=== PATIENT | male | born 1995 | race Caucasian/White ===

== ENCOUNTER 2023-10-19 22:48 | Emergency (ER) | payer OTHER, SELFPAY ==
[2023-10-19 23:00] VITALS: BP 148/88; PULSE 98; RESP 16; TEMP 36.7; O2SAT 98; BMI 21.6
--- NOTE | 2023-10-19 23:27 | ED_ITS ---
HPI - Headache General Time Seen by Provider: 23:27 <Denice Weinstein MD - Last Filed: 10/21/23 10:10> Date Seen: 10/23/23 <Denice Weinstein MD - Last Filed: 10/21/23 10:10> Chief Complaint: Headache/Migraine <Denice Weinstein MD - Last Filed: 10/21/23 10:10> Stated Complaint: Headache <Denice Weinstein MD - Last Filed: 10/21/23 10:10> Time Seen by Provider: 10/19/23 23:09 <Denice Weinstein MD - Last Filed: 10/21/23 10:10> Source: patient and RN notes reviewed <Denice Weinstein MD - Last Filed: 10/21/23 10:10> Mode of arrival: ambulatory <Denice Weinstein MD - Last Filed: 10/21/23 10:10> Limitations: no limitations <Denice Weinstein MD - Last Filed: 10/21/23 10:10> History of Present Illness HPI Narrative: This 28-year-old male is ambulatory into the ED with his girlfriend with complaint of the worst headache of his life. He did get some oxycodone from his girlfriend that she had left over as he had nothing else at his place to take. He took 5 mg of oxycodone at 5:00 p.m. tonight and then another 5 mg at 9:00 p.m.. He admits that he is feeling somewhat woozy, feels that the oxycodone has helped. He feels it in both of his temples, behind his eyes. He admits about a month ago he had another severe headache that lasted about 3-4 days, did not get this bad however. He has had no travel, no definite ill contacts. His girlfriend does want him to be tested for COVID but he feels he has no other symptoms other than the headache. He has had no fevers or chills, no sore throat, no congestion, no visual changes. He has had no neurologic changes with any motor weakness or incoordination in his extremities. He was able to ambulate in. He was in a dark room but does not really necessarily endorse photophobia or phonophobia. When ask him if he gets headaches, he states he feels he gets headaches about the same as a normal person would. He does not carry history of migraines. He is not aware of a family history of migraine headaches or any aneurysm disease in the family. There is no trauma. He told me that earlier when the headache was at its worse, would rated a 9/10. In triage she told them was about a 6/10, he is laughing quite a bit during my history and tells me it is maybe about a 5 per 5.5/10 now. He does admit that he is feeling the effects of the oxycodone and does feel that it has helped the headache. Headache started earlier today this morning, he can not really pinpoint when or remember when. He does remember that the headache felt worse after he went on a walk earlier today. <Denice Weinstein MD - Last Filed: 10/21/23 10:10> MD elicited complaint: headache <Denice Weinstein MD - Last Filed: 10/21/23 10:10> Related Data Home Medications: Home Medications ?Medication ?Instructions ?Recorded ?Confirmed No Known Home Medications 10/19/23 10/19/23 <Denice Weinstein MD - Last Filed: 10/21/23 10:10> Allergies/Adverse Reactions: Allergies Allergy/AdvReac Type Severity Reaction Status Date / Time No Known Drug Allergies Allergy Verified 10/19/23 23:00 <Denice Weinstein MD - Last Filed: 10/21/23 10:10> Review of Systems Status of ROS: Reports: 6 or more systems reviewed and unremarkable except as noted in History and below <Denice Weinstein MD - Last Filed: 10/21/23 10:10> [facility] Social History: Social History Smoking Status: Never smoker How often do you have a drink containing alcohol: never AUDIT-C Alcohol total score: 0 Non-prescribed substance use: denies use <Denice Weinstein MD - Last Filed: 10/21/23 10:10> Exam Const: Vital Signs, click to edit/add: Vital Signs - 24 hr 10/19/23 23:00 10/19/23 23:49 Temperature 98.1 F Pulse Rate [Pulse Oximeter] 98 Respiratory Rate 16 Blood Pressure [Ri ght Upper Arm] 148/88 H Pulse Oximetry 98 100 Oxygen Delivery Me thod Room Air Patient is alert, interactive, no apparent distress, does have the lights off in exam room to. Pupils are equal round reactive, sclera clear, extraocular muscles intact. TMs without any hemotympanum, no evidence of any infection, canals normal. Symmetrical facial function, laughing quite a bit during my interaction with him. Oropharynx normal, no exudates or erythema, mucosa normal. Speech is normal. Neck is supple, no adenopathy, no meningeal signs. Lungs are clear, good air entry, no wheezing crackles. CV regular rate and rhythm, no murmur. Abdomen is soft, nontender, nondistended, no organomegaly. Strength is 5/5 and symmetric throughout his arms and legs, normal sensation, no dysmetria. Patient ambulated into the ED with a normal gait. Skin visualized without any rash. <Denice Weinstein MD - Last Filed: 10/21/23 10:10> Vital Signs, click to edit/add: Vital Signs - 24 hr 10/19/23 23:00 10/19/23 23:49 Temperature 98.1 F Pulse Rate [Pulse Oximeter] 98 Respiratory Rate 16 Blood Pressure [Ri ght Upper Arm] 148/88 H Pulse Oximetry 98 100 Oxygen Delivery Me thod Room Air <Trang Nuno MD - Last Filed: 10/20/23 01:24> Documenting provider has reviewed patient's vital signs: yes <Denice Weinstein MD - Last Filed: 10/21/23 10:10> Course Course ED Course: Patient will proceed to head CT imaging, will get baseline labs. We will initiate an IV, give him a L of normal saline. We will start with Phenergan and Benadryl. If head CT is negative and needs further medicine, Toradol could be added in. His history is concerning for possible sentinel bleed, this could be migraine headaches developing for this patient. Doubtful that there is intraparenchymal disease such as tumors given normal neurologic exam. Right now he seems to be under the affects of the oxycodone which is potentially masking some of his symptoms and do need to keep this in mind. <Denice Weinstein MD - Last Filed: 10/21/23 10:10> Reevaluation(s) Time of Reevaluation #1: 01:23 <Trang Nuno MD - Last Filed: 10/20/23 01:24> Reevaluation #1: Dr. Nuno- Counseled patient on lab findings which are reassuring. Counseled on CT findings also reassuring. Headache has improved with the oxycodone that he took prior to arrival. Will give Toradol 10 mg p.o. x1. Counseled on Tylenol, ibuprofen, aspirin as needed for headaches. I do think that there is more going on and patient could benefit from potentially preventative therapy or a different type of abortive type therapy. I would recommend primary care follow-up. Consider neurology consult and or MRI. Alarm symptoms reviewed that would warrant ED presentation. Written instructions provided, all questions answered <Trang Nuno MD - Last Filed: 10/20/23 01:24> Vital Signs Vital signs: Initial Vital Signs Temperature 98.1 F 10/19/23 23:00 Temperature Source Temporal Artery Scan 10/19/23 23:00 Pulse Rate 98 10/19/23 23:00 Respiratory Rate 16 10/19/23 23:00 Blood Pressure 148/88 H 10/19/23 23:00 Blood Pressure Mean 108 H 10/19/23 23:00 Blood Pressure Position High-Fowlers 10/19/23 23:00 Pulse Oximetry 98 10/19/23 23:00 Oxygen Delivery Method Room Air 10/19/23 23:00 Vital Signs Temperature 98.1 F 10/19/23 23:00 Pulse Rate 98 10/19/23 23:00 Respiratory Rate 16 10/19/23 23:00 Blood Pressure 148/88 H 10/19/23 23:00 Pulse Oximetry 98 10/19/23 23:00 Oxygen Delivery Method Room Air 10/19/23 23:00 Temperature 98.1 F 10/19/23 23:00 Pulse Rate 98 10/19/23 23:00 Respiratory Rate 16 10/19/23 23:00 Blood Pressure 148/88 H 10/19/23 23:00 Pulse Oximetry 100 10/19/23 23:49 Oxygen Delivery Method Room Air 10/19/23 23:00 <Denice Weinstien MD - Last Filed: 10/21/23 10:10> Initial Vital Signs Temperature 98.1 F 10/19/23 23:00 Temperature Source Temporal Artery Scan 10/19/23 23:00 Pulse Rate 98 10/19/23 23:00 Respiratory Rate 16 10/19/23 23:00 Blood Pressure 148/88 H 10/19/23 23:00 Blood Pressure Mean 108 H 10/19/23 23:00 Blood Pressure Position High-Fowlers 10/19/23 23:00 Pulse Oximetry 98 10/19/23 23:00 Oxygen Delivery Method Room Air 10/19/23 23:00 Vital Signs Temperature 98.1 F 10/19/23 23:00 Pulse Rate 98 10/19/23 23:00 Respiratory Rate 16 10/19/23 23:00 Blood Pressure 148/88 H 10/19/23 23:00 Pulse Oximetry 98 10/19/23 23:00 Oxygen Delivery Method Room Air 10/19/23 23:00 Temperature 98.1 F 10/19/23 23:00 Pulse Rate 98 10/19/23 23:00 Respiratory Rate 16 10/19/23 23:00 Blood Pressure 148/88 H 10/19/23 23:00 Pulse Oximetry 100 10/19/23 23:49 Oxygen Delivery Method Room Air 10/19/23 23:00 <Trang Nuno MD - Last Filed: 10/20/23 01:24> Medications Administered Medications: Discontinued Medications Generic Name Dose Route Start Last Admin Trade Name Freq PRN Reason Stop Dose Admin Diphenhydramine HCl 25 mg 10/19/23 23:35 10/19/23 23:41 Diphenhydramine 50 Mg/Ml Inj IVP 10/19/23 23:36 25 mg ONCE ONE Administration Sodium Chloride 1,000 mls @ 500 mls/hr 10/19/23 23:36 10/20/23 00:35 0.9 % Sodium Chloride 1000 Ml IV 10/20/23 01:35 Infused .Q2H NORY Infusion Metoclopramide HCl 10 mg/ 102 mls @ 306 mls/hr 10/19/23 23:35 10/20/23 00:05 Sodium Chloride IVPB 10/19/23 23:36 Infused ONCE ONE Infusion <Denice Weinstein MD - Last Filed: 10/21/23 10:10> Discontinued Medications Generic Name Dose Route Start Last Admin Trade Name Claudette PRN Reason Stop Dose Admin Diphenhydramine HCl 25 mg 10/19/23 23:35 10/19/23 23:41 Diphenhydramine 50 Mg/Ml Inj IVP 10/19/23 23:36 25 mg ONCE ONE Administration Sodium Chloride 1,000 mls @ 500 mls/hr 10/19/23 23:36 10/20/23 00:35 0.9 % Sodium Chloride 1000 Ml IV 10/20/23 01:35 Infused .Q2H NORY Infusion Metoclopramide HCl 10 mg/ 102 mls @ 306 mls/hr 10/19/23 23:35 10/20/23 00:05 Sodium Chloride IVPB 10/19/23 23:36 Infused ONCE ONE Infusion <Trang Nuno MD - Last Filed: 10/20/23 01:24> MDM - Headache Differential Diagnosis Differential diagnosis: Likely migraine, tension headache, subarachnoid hemorrhage, headache, meningitis and postconcussion syndrome <Trang Nuno MD - Last Filed: 10/20/23 01:24> Lab Data Attestation: I reviewed the patient's lab results. <Trang Nuno MD - Last Filed: 10/20/23 01:24> Lab results narrative: Lab reassuring with no worrisome features. <Trang Nuno MD - Last Filed: 10/20/23 01:24> Labs: Lab Results 10/19/23 10/19/23 Range/Units 23:35 23:40 WBC 11.80 H (4.50-11.00) K/uL RBC 4.80 (4.30-5.90) m/uL Hgb 14.5 (13.5-17.5) gm/dL Hct 42.5 (37.0-53.0) % MCV 89 (80-100) fL MCH 30 (26-34) pg MCHC 34 (32-36) gm/dL RDW Coeff of Gerardo 12.3 (11.5-15.5) % Plt Count 164 (140-440) K/uL Neut % (Auto) 82.6 H (42.0-72.0) % Lymph % (Auto) 9.5 L (20-44) % [place] % (Auto) 6.5 (0.0-11.0) % Eos % (Auto) 0.3 (0.0-7.0) % Baso % (Auto) 0.3 (0.0-3.0) % Neut # (Auto) 9.70 H (1.7-7.0) K/uL Lymph # (Auto) 1.10 (0.90-2.90) K/uL [place] # (Auto) 0.80 (0.00-0.90) K/UL Eos # (Auto) 0.00 (0.00-0.50) K/uL Baso # (Auto) 0.00 (0.00-0.30) K/uL Abs Immat Gran (auto) 0.10 (0.00-0.30) K/uL Imm/Tot Granulo (auto) 0.8 % Sodium 137 (135-149) mmol/L Potassium 3.6 (3.6-5.1) mmol/L Chloride 101 (96-114) mmol/L Carbon Dioxide 26 (20-32) mmol/L Anion Gap 10 (7-15) mEq/L BUN 18 (5-24) mg/dL Creatinine 1.0 (0.5-1.5) mg/dL Estimated Creat Clear 111.32 Estimated GFR 106 ml/min Glucose 92 (60-115) mg/dL Calcium 9.3 (8.4-10.6) mg/dL Total Bilirubin 0.7 (0.1-1.5) mg/dL AST 30 (12-35) U/L ALT 20 (4-50) U/L Alkaline Phosphatase 48 (40-150) U/L C-Reactive Protein < 0.5 L (0.5-1.0) mg/dL Total Protein 7.7 (6.0-8.3) g/dL Albumin 5.1 H (3.3-5.0) g/dL SARS-CoV-2 (PCR) Negative SARS-CoV-2 (Negative) <Denice Weinstein MD - Last Filed: 10/21/23 10:10> Lab Results 10/19/23 10/19/23 Range/Units 23:35 23:40 WBC 11.80 H (4.50-11.00) K/uL RBC 4.80 (4.30-5.90) m/uL Hgb 14.5 (13.5-17.5) gm/dL Hct 42.5 (37.0-53.0) % MCV 89 (80-100) fL MCH 30 (26-34) pg MCHC 34 (32-36) gm/dL RDW Coeff of Gerardo 12.3 (11.5-15.5) % Plt Count 164 (140-440) K/uL Neut % (Auto) 82.6 H (42.0-72.0) % Lymph % (Auto) 9.5 L (20-44) % [place] % (Auto) 6.5 (0.0-11.0) % Eos % (Auto) 0.3 (0.0-7.0) % Baso % (Auto) 0.3 (0.0-3.0) % Neut # (Auto) 9.70 H (1.7-7.0) K/uL Lymph # (Auto) 1.10 (0.90-2.90) K/uL [place] # (Auto) 0.80 (0.00-0.90) K/UL Eos # (Auto) 0.00 (0.00-0.50) K/uL Baso # (Auto) 0.00 (0.00-0.30) K/uL Abs Immat Gran (auto) 0.10 (0.00-0.30) K/uL Imm/Tot Granulo (auto) 0.8 % Sodium 137 (135-149) mmol/L Potassium 3.6 (3.6-5.1) mmol/L Chloride 101 (96-114) mmol/L Carbon Dioxide 26 (20-32) mmol/L Anion Gap 10 (7-15) mEq/L BUN 18 (5-24) mg/dL Creatinine 1.0 (0.5-1.5) mg/dL Estimated Creat Clear 111.32 Estimated GFR 106 ml/min Glucose 92 (60-115) mg/dL Calcium 9.3 (8.4-10.6) mg/dL Total Bilirubin 0.7 (0.1-1.5) mg/dL AST 30 (12-35) U/L ALT 20 (4-50) U/L Alkaline Phosphatase 48 (40-150) U/L C-Reactive Protein < 0.5 L (0.5-1.0) mg/dL Total Protein 7.7 (6.0-8.3) g/dL Albumin 5.1 H (3.3-5.0) g/dL SARS-CoV-2 (PCR) Negative SARS-CoV-2 (Negative) <Trang Nuno MD - Last Filed: 10/20/23 01:24> Imaging Data CT scan - head: Attestation: I have reviewed the pertinent imaging results. <Trang Nuno MD - Last Filed: 10/20/23 01:24> My impression: higher than expected vascular calcifications but no signs of bleed, mass or other abnormalities. Normal head CT. <Trang Nuno MD - Last Filed: 10/20/23 01:24> Radiologist's impression: IMPRESSION: 1. No evidence of acute infarction, intracranial hemorrhage, or mass-effect seen. <Trang Nuno MD - Last Filed: 10/20/23 01:24> Discharge Plan Discharge Clinical Impression: Headache <Denice Weinstein MD - Last Filed: 10/21/23 10:10> Patient Disposition: Home w/ Parent or Adult <Denice Weinstein MD - Last Filed: 10/21/23 10:10> Condition: Improved <Denice Weinstein MD - Last Filed: 10/21/23 10:10> Instructions: Acute Headache (DC) <Denice Weinstein MD - Last Filed: 10/21/23 10:10> Additional Instructions: As we discussed, your head CT does not show any signs of major abnormality. There are no tumors, signs of a bleed, aneurysm, other abnormality. This is great news. In the emergency department in the middle of the night, I cannot run all the tests that would be necessary to further classify your headaches. I would recommend that you make a follow-up appoint with the primary care doctor. They may consider a neurology referral or MRI as well. For pain, I recommend Tylenol 1000 mg every 6 hours. At on ibuprofen 600 mg every 6 hours and or aspirin 650 mg every 8 hours as needed. Come back to the emergency department if there is high fever, severe vomiting, stroke-like symptoms or other neurological changes. You may resume all typical duties. <Denice Weinstein MD - Last Filed: 10/21/23 10:10> Activity Level: No Restrictions <Denice Weinstein MD - Last Filed: 10/21/23 10:10> No Restrictions <Trang Nuno MD - Last Filed: 10/20/23 01:24> Discharge Diet: Regular <Denice Weinstein MD - Last Filed: 10/21/23 10:10> Regular <Trang Nuno MD - Last Filed: 10/20/23 01:24> Prescriptions: No Action No Known Home Medications <Denice Weinstein MD - Last Filed: 10/21/23 10:10> Follow Up/Referrals: Provider,Not a Local [Primary Care Provider] - <Denice Weinstein MD - Last Filed: 10/21/23 10:10> Stand Alone Forms: [employer] Info Instructions <Denice Weinstein MD - Last Filed: 10/21/23 10:10>
--- NOTE | 2023-10-19 23:35 | CRLHL7_ITS ---
For Patients: As a result of the Century Cures Act, medical imaging exams and procedure reports are released immediately into your electronic medical record. You may view this report before your referring provider. If you have questions, please contact your health care provider. INDICATION: Severe headaches. TECHNIQUE: CT Head without i.v. contrast. Coronal and sagittal reformats were obtained. COMPARISON: None FINDINGS: CSF space: The ventricles are normal for age. Brain: No evidence of mass, acute infarction or hemorrhage is seen. No mass-effect or midline shift is seen. The brain parenchyma is otherwise normal in appearance with preservation of the carrington-white matter junction. Calvarium: The visualized paranasal sinuses are well aerated. The mastoid air cells are clear. The visualized orbits are grossly unremarkable. The calvarium is unremarkable in appearance with no fractures identified. IMPRESSION: 1. No evidence of acute infarction, intracranial hemorrhage, or mass-effect seen. Please note that all CT scans at this facility use dose modulation, iterative reconstruction, and/or weight-based dosing when appropriate to reduce radiation dose to as low as reasonably achievable. Dictated by: Gurpreet Han MD @ 10/20/2023 01:07:48 (Electronically Signed)
[2023-10-19] MEDS: 0.9 % SODIUM CHLORIDE 1000 ml 1,000 ML IV (23:40)
[2023-10-19] MEDS: diphenhydrAMINE 50 MG/ML inj 25 MG IVP (23:41)
[2023-10-19] MEDS: METOCLOPRAMIDE HCL 10 MG in 0.9 % SODIUM CHLORIDE 100 ml 100 ML 306 MG IVPB (23:43)
[2023-10-19 23:49] VITALS: O2SAT 100
[2023-10-19 23:51] LABS: Basophils Percent Auto 0.3 % (0.0-3.0); Eosinophils Percent Auto 0.3 % (0.0-7.0); Hematocrit 42.5 % (37.0-53.0); Hemoglobin* 14.5 gm/dL (13.5-17.5); Immature Granulocytes Pct Auto 0.8 %; Lymphocytes Percent Auto 9.5 % (20-44); Mean Corpuscular HGB Conc 34 gm/dL (32-36); Mean Corpuscular Hemoglobin 30 pg (26-34); Mean Corpuscular Volume 89 fL (80-100); Monocytes Percent Auto 6.5 % (0.0-11.0); Neutrophils Percent Auto 82.6 % (42.0-72.0); Platelet Count* 164 K/uL (140-440); RDW Coefficient of Variation % 12.3 % (11.5-15.5)
[2023-10-19 23:54] LABS: Slide Review Reflex No
[2023-10-20 00:03] LABS: Albumin* 5.1 g/dL (3.3-5.0); Chloride* 101 mmol/L (96-114)
[2023-10-20 00:04] LABS: Potassium* 3.6 mmol/L (3.6-5.1); Sodium* 137 mmol/L (135-149)
[2023-10-20 00:06] LABS: Alkaline Phosphatase* 48 U/L (40-150); Anion Gap 10 mEq/L (7-15); Aspartate Amino Transferase* 30 U/L (12-35); Bilirubin Total* 0.7 mg/dL (0.1-1.5); Carbon Dioxide* 26 mmol/L (20-32); Est. Creatinine Clearance* 111.32; Estimated Glomerular Filt Rate 106 ml/min; Total Protein* 7.7 g/dL (6.0-8.3)
[2023-10-20 00:07] LABS: Alanine Aminotransferase* 20 U/L (4-50); Blood Urea Nitrogen* 18 mg/dL (5-24); Calcium* 9.3 mg/dL (8.4-10.6); Glucose* 92 mg/dL (60-115)
[2023-10-20 00:11] LABS: C Reactive Protein* < 0.5 mg/dL (0.5-1.0)
[2023-10-20 00:38] LABS: SARS PCR* Negative SARS-CoV-2 (Negative)
== END 2023-10-20 01:28 | disposition home or self-care (01) ==
PROVIDERS: Family Medicine; Emergency Provider Family Medicine
DX: R51.9 Headache, unspecified (principal)
CPT/HCPCS: 36415; 70450; 80053; 85025; 86140; 87635; 94761; 96365; 96375; 99284; J1200; J2765; J7030